=== PATIENT | female | born 1935 | race Caucasian/White ===

== ENCOUNTER 2017-09-17 13:29 | Inpatient (IN) | payer OTHER ==
[~2017-09-17] VITALS: Ht 160 cm; Wt 53.8 kg
[2017-09-17] VITALS (20 sets, daily range): BP systolic 115–180; BP diastolic 65–156; PULSE 65–86; TEMP 36.4–36.9; O2SAT 92–95; Ht 160 cm; Wt 53.8 kg
[2017-09-17] MEDS ORDERED: ONDANSETRON INJ 2 MG/ML 2 ML VIAL IV PRN (17:30)
[2017-09-17] MEDS ORDERED: ACETAMINOPHEN 325 MG TAB PO PRN (17:30)
[2017-09-17] MEDS ORDERED: MAGNESIUM HYDROXIDE SUSP 30 ML UDC PO PRN (17:30)
[2017-09-17] MEDS ORDERED: PATIENT'S ALLERGY INFO NEEDS ENTERED SCH (18:30)
--- NOTE | 2017-09-17 18:46 | Nephrology Consultation ---
Nephrology Consultation Date & Providers Date of Consultation: Sep 17, 2017. Primary Care Provider: Alexis Cuevas D.O. Referring Provider: Reason for Consultation Evaluation for emergency dialysis for volume overload and hyperkalemia for patient with end-stage renal disease. History of Present Illness Theresa is a very pleasant 82-year-old female with past medical history significant for end-stage renal disease on hemodialysis, hypertension, anemia and secondary hyperparathyroidism admitted to the hospital with 2 days history of diarrhea, volume overload and hyperkalemia with missed dialysis treatment. Nephrology consult was requested for providing emergency hemodialysis. Electronic medical records including labs and imaging are reviewed in detail during patient's visit. Theresa has history of end-stage renal disease has been on hemodialysis for more than 10 years. Etiology for end-stage renal disease seems to be renal cell carcinoma status post nephrectomy with eventual loss of renal function. She has been on dialysis on Wednesday, Wednesday, Wednesday via left radiocephalic AV fistula. Her last dialysis treatment was on Wednesday09/13/2017. Shortly was having diarrhea and abdominal pain for last 3-4 days and was not able to go for dialysis on last Wednesday as her regular schedule due to ongoing diarrhea. As her diarrhea continued to progress and she reports abdominal cramps bowel movement after eating anything, she went to [facility]. She is normally from [facility] but there [facility] she was transferred to [facility] from [facility]. She was found to be volume overloaded, blood pressure was running high and lab showed potassium 6.3. Currently she is on 6 L oxygen via nasal cannula, oxygen saturation has been staying below 90 and has been having significant shortness of breath. She is overall feeling poorly, having difficulty breathing while talking, continue to complain of abdominal cramps with eating and ongoing diarrhea. She has been anuric. She reports occasional cough and headache over last few days. Denies fever or chills. She had flu shot in the fall. Past Medical/Surgical History Medical: # End-stage renal disease on hemodialysis since 2001 # Hypertension # history of renal cell carcinoma status post nephrectomy # anemia secondary to end-stage renal disease # secondary hyperparathyroidism of renal origin # left forearm radiocephalic AV fistula placement Surgical: # Surgery for left radiocephalic AV fistula Allergies Coded Allergies: Morphine (Verified Allergy, Severe, GI SYMPTOMS, 09/17/17) Per patient report Acetaminophen (Verified Allergy, Unknown, GI SYMPTOMS, 09/17/17) Patient states she cannot remember what happened when she takes this medication Codeine (Verified Allergy, Unknown, GI SYMPTOMS, 09/17/17) Patient states she cannot remember what happened when she takes this medication Inpatient Medications Current Inpatient Medications Medications (Trade) Dose Ordered Sig/Augie Route Start Time Stop Time Status Last Admin Dose Admin Acetaminophen (Tylenol Tab) 650 mg Q4H PRN PO 09/17/17 17:30 10/17/17 17:29 UNV Magnesium Hydroxide (Milk Of Magnesia Susp) 30 ml Q6H PRN PO 09/17/17 17:30 2 17:29 UNV Ondansetron HCl (Zofran Inj) 4 mg Q6H PRN IV 09/17/17 17:30 10/17/17 17:29 UNV Miscellaneous Information (Patient'S Allergy Info Needs Entered) 1 ea Q30M N/A 09/17/17 18:30 10/17/17 18:29 Family History Could not provide any detailed family history regarding chronic kidney disease or end-stage renal disease. Social History Smoking Status: Former Smoker Review of Systems A complete review of systems was performed. Pertinent positives are noted above. All other systems are negative. Physical Exam Date Time Temp Pulse Resp B/P (MAP) Pulse Ox O2 Delivery O2 Flow Rate FiO2 09/17/17 17:54 Nasal Cannula 6.0 09/17/17 17:20 36.8 71 16 179/75 (109) 92 Nasal Cannula 6.0 GENERAL: elderly female AAA x 3, ill-appearing, in moderate respiratory distress. HEENT: Atraumatic, normocephalic. NECK: Supple, positive JVD, no carotid bruit appreciated. ENT: No sinus tenderness MOUTH and THROAT: Moist oral mucosa, no oral ulcer or pharyngeal erythema RESPIRATORY: using accessory muscles to breath, coarse crackles bilaterally. CARDIOVASCULAR: S1, S2 normal, rate rhythm regular. ABDOMEN: Soft, nontender, positive bowel sound. MUSCULOSKELETAL: No joint swelling, erythema or tenderness. Normal range of motion. SKIN: No skin rash EXTREMITY: Trace bilateral lower extremity edema NEURO: No gross focal neurological deficit, speech fluent. PSYCHIATRY: Normal mood and judgment Laboratory Results Last 24 Hours Test 09/17/17 17:17 Impression (1) End-stage renal disease on hemodialysis (2) Volume overload (3) Hyperkalemia, diminished renal excretion (4) Hypertension (5) Anemia (6) Secondary hyperparathyroidism of renal origin 82-year-old female with end-stage renal disease on hemodialysis Wednesday, Wednesday, Wednesday, presented with volume overload and hyperkalemia after missing dialysis was 3 days. Patient has been on dialysis for more than 10 years. Has been having abdominal pain and diarrhea for 3 days and missed dialysis. Has history of hypertension, blood pressure has been running high. Past medical history also significant for renal cell carcinoma status post nephrectomy with eventual loss of renal function and has been on dialysis since. Patient is now clearly volume overloaded, has been having respiratory distress, oxygen saturation below 90% on 6 L nasal cannula, exam consistent with pulmonary vascular congestion. Lab from [facility] showed hyperkalemia, potassium was 6.3. Blood pressure has been elevated. Currently patient continues to have significant respiratory distress and overall feeling poorly. Recommendations --will set up for emergency dialysis to improve volume status and correct hyperkalemia, will use 2K bath, UF goal for 3 L. --avoid IV fluid --dose medications for GFR <10 --start on Tums 1 tablet with each meal as phosphate binder --Nephrocaps 1 cap daily --Epogen with dialysis as needed for hemoglobin less than 10 Hemodialysis orders entered in EMR, statin discussed with the on-call dialysis nurse. We will be available for any concerns or question throughout dialysis treatment. Thank you for the consult, it was pleasure to see Theresa
[2017-09-17] MEDS ORDERED: ALPR1TAB3 PO (19:01)
[2017-09-17] MEDS ORDERED: CINA60TA PO (19:01)
[2017-09-17] MEDS ORDERED: SERT25TA PO (19:11)
[2017-09-17] MEDS ORDERED: LOVA40TA4 PO (19:11)
[2017-09-17] MEDS ORDERED: ZOLP10TA PO (19:11)
[2017-09-17] MEDS ORDERED: B-CO1CAP17 PO (19:11)
[2017-09-17] MEDS ORDERED: METO50TA16 PO (19:11)
[2017-09-17] MEDS ORDERED: CALC667C4 PO ×2 (19:11)
--- NOTE | 2017-09-17 19:20 | History and Physical ---
History & Physical Date & Time of Service: Sep 17, 2017 at 19:09 Chief Complaint: Renal Failure Primary Care Physician: Alexis Cuevas D.O. History of Present Illness Source: patient 82 y/o F who was transferred from [place] ED for dialysis. Pt generally follows with [place] for the renal care but they are unable to accept transfers today so she was sent here. Pt was in her usual state of health until Wednesday AM when she woke up with diarrhea. She states it started as soon as she ate breakfast. She decided to not go to her usual HD due to this. The post- prandial diarrhea has continued, so she did not go today either. Her last HD was Wednesday. Pt also started to have epigastric abd pain. No n/v. In the ED, pt was noted to have hyperkalemia and cr 10. She was given insulin, bicarb, kayexalate prior to transfer. Pt generally uses O2 HS only, but has started to need it at rest now. Upon sign out from [place] ED, pt was not having SOB or other signs of hemodynamic instability. She states she feels SOB. No chest pain. Pt denies fever, LE pain or swelling. I spoke with Dr. Danielson who will contact the HD team for emergent HD tx Past Medical/Surgical History HTN HLD CAD Dep/anx Hyperparathyroidism CKD V Social History Smoking Status: Former Smoker Alcohol Use: none Drug Use: none Allergies Coded Allergies: Morphine (Verified Allergy, Severe, GI SYMPTOMS, 09/17/17) Per patient report Acetaminophen (Verified Allergy, Unknown, GI SYMPTOMS, 09/17/17) Patient states she cannot remember what happened when she takes this medication Codeine (Verified Allergy, Unknown, GI SYMPTOMS, 09/17/17) Patient states she cannot remember what happened when she takes this medication Home Medications Scheduled Alprazolam (Xanax), 2 MG PO HS Calcium Acetate (Phoslo 667 Mg), 1 CAP PO SNACKS Calcium Acetate (Phoslo 667 Mg), 2 CAP PO TIDM Cinecalcet (Sensipar), 60 MG PO DAILY Lovastatin (Mevacor), 40 MG PO DAILY Metoprolol Tartrate (Lopressor) (Lopressor), 50 MG PO BID Sertraline (Zoloft), 25 MG PO QAM Vitamin B Cmplx/Vitc/Folic Ac (Nephrocaps), 1 CAP PO DAILY Zolpidem Tartrate (Ambien), 10 MG PO HS Physical Exam Vital Signs Date Time Temp Pulse Resp B/P (MAP) Pulse Ox O2 Delivery O2 Flow Rate FiO2 09/17/17 17:54 Nasal Cannula 6.0 09/17/17 17:20 36.8 71 16 179/75 (109) 92 Nasal Cannula 6.0 General Appearance: + mild distress (SOB on O2), + thin Head: normocephalic, atraumatic Eyes: normal inspection, EOMI, sclerae normal Respiratory/Chest: + respiratory distress, + crackles Cardiovascular: regular rate, rhythm, no edema Abdomen/GI: soft, + tenderness (epigastric) Extremities/Musculoskelatal: no calf tenderness, no pedal edema Neurologic/Psych: alert, normal mood/affect (but anxious appearing), oriented x 3 Skin: normal color, warm/dry Diagnostics Laboratory Results Results Past 24 Hours Test 09/17/17 17:17 Range/Units Diagnostic Radiology CT AP pending radiology review, reported as neg for acute with a stable AAA noted CXR: noted for CHF Impression Assessment and Plan 82 y/o F who was transferred from [place] for acute on chronic renal failure. Acute on chronic renal failure: in the setting of missed HD (missed Wednesday and today) Now in CHF, spoke with Dr. Danielson who will arrange for urgent HD tonight Cr at [place] noted to be 10, repeat pending CKD V Pt typically follows with [facility] for her renal care, however they were unable to accept pt due to bed availability HyperK: given kayexalate, insulin, bicarb at OSH Repeat value pending CHF: likely related to inability to make urine and missed HD Monitor s/p HD Diarrhea: uncertain cause Monitor Cdiff pending HTN: continue home meds Pharmacy: pt unable to reconcile home meds Discussed with pharmacy who will research and update Depression/anx: continue home meds ERIBERTO:?? pt uses O2 HS only at home Other: Full code Reg diet Heparin for DVT proph Level of Care Med/Surg Advanced Directives Existing Living Will: No Existing Power of Wastewater Engineer: No Resuscitation Status FULL RESUSCITATION VTE Prophylaxis VTE Risk Assessment Done? Y/N: Yes Risk Level: Low
[2017-09-17] MEDS ORDERED: ALPRAZOLAM 0.5 MG TAB PO SCH (21:00)
[2017-09-17] MEDS ORDERED: LOVASTATIN 20 MG TAB PO SCH (21:00)
[2017-09-17] MEDS ORDERED: ZOLPIDEM TARTRATE 10 MG TAB PO SCH (21:00)
[2017-09-17] MEDS: METOPROLOL TARTRATE 50 MG TAB PO SCH (23:20)
[2017-09-17] MEDS: SENSIPAR~ORDER AWAITING ACTION SCH (23:31)
[2017-09-18 00:33] VITALS: BP 97/54; PULSE 60; O2SAT 96
[2017-09-18 00:52] LABS: HEMATOCRIT 28.4 % (37-47); HEMOGLOBIN 9.3 g/dL (12.0-16.0); MEAN CELL VOLUME 106.8 fL (80-100); MEAN CORPUSCULAR HGB CONC 32.7 g/dl (32-36); PLATELET COUNT 153 K/uL (130-400); RED CELL DISTRIBUTION WIDTH CV 15.2 % (11.5-14.5); RED CELL DISTRIBUTION WIDTH SD 58.5 fL (36.4-46.3); WHITE BLOOD COUNT 7.92 K/uL (4.8-10.8)
[2017-09-18 01:01] LABS: PTT PATIENT 28.2 SECONDS (21.0-31.0)
[2017-09-18 01:10] LABS: CALCIUM 7.6 mg/dl (8.5-10.1); CREATININE 3.26 mg/dl (0.60-1.20); PHOSPHORUS 2.4 mg/dl (2.5-4.9); POTASSIUM 3.4 mmol/L (3.5-5.1)
[2017-09-18 03:07] VITALS: BP 124/62; PULSE 56; TEMP 36.8; O2SAT 98
[2017-09-18] MEDS: HEPARIN SOD 5000 UNIT/0.5 ML CARP SQ SCH ×2 (06:04→13:24)
[2017-09-18 07:26] VITALS: BP 156/78; PULSE 55; TEMP 36.8; O2SAT 99
[2017-09-18] MEDS: SENSIPAR~ORDER AWAITING ACTION SCH ×2 (08:00→15:22)
[2017-09-18] MEDS ORDERED: CALCIUM ACETATE 667MG GELCAP PO SCH (08:30)
[2017-09-18] MEDS ORDERED: CALCIUM ACETATE 667MG GELCAP PO PRN (09:00)
[2017-09-18] MEDS ORDERED: SERTRALINE HCL 50 MG TAB PO SCH (09:00)
[2017-09-18] MEDS: CALCIUM ACETATE 667MG GELCAP PO SCH ×3 (09:00→17:45)
[2017-09-18] MEDS: METOPROLOL TARTRATE 50 MG TAB PO SCH (09:00)
[2017-09-18] MEDS ORDERED: NEPHROCAPS PO SCH ×2 (09:00)
[2017-09-18 09:06] VITALS: BP 147/77; PULSE 58
--- NOTE | 2017-09-18 13:27 | Nephrology Progress Note ---
Nephrology Progress Note Date of Service Sep 18, 2017. Chief Complaint Follow-up for volume overload and hyperkalemia for patient with end-stage renal disease. Stefano Cardenas was seen and examined in her room this morning. She is feeling much better, shortness of breath resolved, currently oxygen saturation normal in room air. Had dialysis yesterday with more than 2 liters ultra filtration. Potassium normalized. Currently blood pressure electrolyte and volume status acceptable. Review of Systems A complete review of systems was performed. Pertinent positives are noted above. All other systems are negative. Vital Signs Last 8 Hrs Date Time Temp Pulse Resp B/P (MAP) Pulse Ox O2 Delivery O2 Flow Rate FiO2 09/18/17 09:06 58 147/77 (100) 09/18/17 07:26 36.8 55 19 156/78 (104) 99 Room Air 09/18/17 07:15 Nasal Cannula 4.0 09/18/17 03:07 36.8 56 16 124/62 (82) 98 Nasal Cannula 4.0 Last Recorded Weight Weight (Kilograms): 53.800 Physical Exam GENERAL: Elderly female, AAA x 3, pleasant, healthy-appearing, not in any distress. NECK: Supple, no JVD. RESPIRATORY: Normal breathing efforts, no accessory muscle use, clear to auscultation bilaterally, no wheezes or rales. CARDIOVASCULAR: S1, S2 normal, rate rhythm regular. EXTREMITY: No lower extremity edema NEURO: speech fluent. PSYCHIATRY: Normal mood and judgment Family History Could not provide any detailed family history regarding chronic kidney disease or end-stage renal disease. Social History Alcohol Use: none Drug Use: none Laboratory Results Past 24 Hours 09/18/17 00:30 09/18/17 00:30 Test 09/18/17 00:30 Red Blood Count 2.66 M/uL (4.2-5.4) Mean Corpuscular Volume 106.8 fL (80-100) Mean Corpuscular Hemoglobin 35.0 pg (25-34) Mean Corpuscular Hemoglobin Concent 32.7 g/dl (32-36) RDW Standard Deviation 58.5 fL (36.4-46.3) RDW Coefficient of Variation 15.2 % (11.5-14.5) Mean Platelet Volume 9.0 fL (7.4-10.4) Prothrombin Time 11.0 SECONDS (9.0-12.0) Prothromb Time International Ratio 1.0 (0.9-1.1) Activated Partial Thromboplast Time 28.2 SECONDS (21.0-31.0) Partial Thromboplastin Ratio 1.1 Anion Gap 7.0 mmol/L (3-11) Est Creatinine Clear Calc Drug Dose 11.2 ml/min Estimated GFR () 14.7 Estimated GFR (Non- 12.7 BUN/Creatinine Ratio 3.5 (10-20) Calcium Level 7.6 mg/dl (8.5-10.1) Phosphorus Level 2.4 mg/dl (2.5-4.9) Magnesium Level 2.0 mg/dl (1.8-2.4) Hepatitis B Surface Antigen NEG (NEG) Hepatitis B Surface Antibody POS Allergies Coded Allergies: Morphine (Verified Allergy, Severe, GI SYMPTOMS, 09/17/17) Per patient report Codeine (Verified Allergy, Unknown, GI SYMPTOMS, 09/17/17) Patient states she cannot remember what happened when she takes this medication Medications Current Inpatient Medications Medications (Trade) Dose Ordered Sig/Augie Route Start Time Stop Time Status Last Admin Dose Admin Acetaminophen (Tylenol Tab) 650 mg Q4H PRN PO 09/17/17 17:30 10/17/17 17:29 09/17/17 21:16 650 MG Magnesium Hydroxide (Milk Of Magnesia Susp) 30 ml Q6H PRN PO 09/17/17 17:30 10/17/17 17:29 Ondansetron HCl (Zofran Inj) 4 mg Q6H PRN IV 09/17/17 17:30 10/17/17 17:29 09/17/17 23:19 4 MG Vitamin B Complex/ Vit C/Folic Acid (Nephrocaps) 1 cap QAM PO 09/18/17 09:00 10/18/17 08:59 09/18/17 09:01 1 CAP Heparin Sodium (Porcine) (Heparin Sq 5000 Unit/0.5ml) 5,000 unit Q8 SQ 09/18/17 06:00 10/18/17 05:59 09/18/17 06:04 5,000 UNIT Alprazolam (Xanax Tab) 2 mg HS PO 09/17/17 21:00 10/17/17 20:59 09/17/17 23:18 2 MG Calcium Acetate (Phoslo Cap) 667 mg DAILY PRN PO 09/18/17 09:00 10/18/17 08:59 Calcium Acetate (Phoslo Cap) 1,334 mg TIDM PO 09/18/17 08:30 10/18/17 08:29 09/18/17 09:00 1,334 MG Metoprolol Tartrate (Lopressor Tab) 50 mg BID PO 09/17/17 21:00 10/17/17 20:59 09/17/17 23:20 50 MG Sertraline HCl (Zoloft Tab) 25 mg QAM PO 09/18/17 09:00 10/18/17 08:59 09/18/17 09:02 25 MG Vitamin B Complex/ Vit C/Folic Acid (Nephrocaps) 1 cap DAILY PO 09/18/17 09:00 10/18/17 08:59 Zolpidem Tartrate (Ambien Tab) 10 mg HS PO 09/17/17 21:00 10/17/17 20:59 09/17/17 23:18 10 MG Miscellaneous Information (Order Awaiting Action) 1 ea QS N/A 09/18/17 00:00 10/18/17 00:00 Lovastatin (Mevacor Tab) 40 mg HS PO 09/17/17 21:00 10/17/17 20:59 09/17/17 23:19 40 MG Impression (1) End-stage renal disease on hemodialysis (2) Volume overload (3) Hyperkalemia, diminished renal excretion (4) Hypertension (5) Anemia (6) Secondary hyperparathyroidism of renal origin 82-year-old female with end-stage renal disease on hemodialysis Wednesday, Wednesday, Wednesday, presented with volume overload and hyperkalemia after missing dialysis was 3 days. Patient has been on dialysis for more than 10 years. Has been having abdominal pain and diarrhea for 3 days and missed dialysis. Has history of hypertension, blood pressure has been running high. Past medical history also significant for renal cell carcinoma status post nephrectomy with eventual loss of renal function and has been on dialysis since. Patient is now clearly volume overloaded, has been having respiratory distress, oxygen saturation below 90% on 6 L nasal cannula, exam consistent with pulmonary vascular congestion. Lab from [facility] showed hyperkalemia, potassium was 6.3. Blood pressure has been elevated. Currently patient continues to have significant respiratory distress and overall feeling poorly. Recommendations --had emergency dialysis last evening with improvement in volume status and hyperkalemia. Currently electrolyte blood pressure and volume status acceptable --avoid IV fluid --dose medications for GFR <10 --continue on Tums 1 tablet with each meal as phosphate binder --Nephrocaps 1 cap daily --next dialysis Wednesday, will give Epogen with dialysis Will follow
--- NOTE | 2017-09-18 14:49 | Discharge Instructions ---
Discharge Instructions Date of Service Sep 18, 2017. Admission Reason for Admission: Renal Failure Discharge Discharge Diagnosis / Problem: viral gastroenteritis causing diarrhea, causing missed dialysis Discharge Goals Goal(s): Diagnostic testing, Therapeutic intervention Activity Recommendations Activity Limitations: resume your previous activity . Instructions / Follow-Up Instructions / Follow-Up obviously things like a stomach bug are difficult to avoid, but as best as possible, try to not miss dialysis appointments. if you do, usually kidney docs are good about trying to get you in for a "make up session" before you get into too much trouble. in the future, if you miss even one session, call your factory laborer (kidney doctor) to try to get things expedited to get dialyzed as soon as possible everything looks like you've returned to your baseline of health, except for the oxygen numbers. by your description, i suspect you're a person who likely benefits from oxygen all the time, and just doesn't feel short of breath when your numbers are running low. however, it's also possible that there's still a little bit of fluid backed up, but nothing that requires urgent intervention. i would recommend you wear your oxygen at a setting of 4L at all times at least until dialysis on wednesday. after that, they can check a pulse ox reading and give you a good idea of where your numbers are. given my suspicion that you have lower oxygen numbers than you realize (usually a patient isn't able to have the oxygen equipment you have unless they show evidence of running low all the time, or at least more often than not), it would be beneficial to get a pulse oximeter to be able to check your own readings at home. the goal would be to use oxygen to keep your numbers above 90 %. Call your Primary Care doctor if any of the following symptoms or problems start or get worse: * Shortness of breath or difficulty breathing * Wake up at night short of breath * Chest pain * Cough * Swelling of your hands, feet, or legs * More fatigued or tired with your normal activity * Palpitations - sudden fast heart beats WEIGHT * Weigh yourself every morning after using the bathroom. * Use the same scale. * Wear the same amount of clothing. * Write your weight down on a chart. * Call your Primary Care doctor if you gain more than 2-3 pounds in 1-2 days. MEDICATIONS * Use this discharge instruction sheet for medication instructions. * Take your medications at the time your doctor ordered. * Do not skip a dose of your medicines. * If you miss a dose of medicine, take it as soon as possible, but DO NOT DOUBLE A DOSE. * Read your medicine information when you get home. * Know all of the side effects of your medicine. If in doubt, ask your pharmacist * Call your Primary Care doctor's office if you have any side effects. * Be sure all of your doctors know what medicine and herbs you take (including cold, flu, and herbal medicine). Take the following with you to your follow-up doctor appointments: * Weight Chart * Medication List * List of questions Do not drink excessive alcohol, beer or wine. Current Hospital Diet Patient's current hospital diet: Renal Diet Discharge Diet Recommended Diet: Renal Diet Pending Studies Studies pending at discharge: no Medical Emergencies . Who to Call and When: Call 911 or go to the Emergency Room if: * If at any time you feel your situation is an emergency * You have tightness or pain in your chest that does not go away with rest or Nitroglycerin * You are very short of breath even with rest . Non-Emergent Contact Non-Emergency issues call your: Primary Care Provider, Solar Engineer (follow up at dialysis on wednesday; have a repeat CBC and BMP (labwork) done early next week) . . "Provider Documentation" section prepared by Armando Rosado. . VTE Core Measure Inpt VTE Proph given/why not?: Unfractionated heparin SQ
[2017-09-18 15:25] VITALS: BP 166/78; PULSE 72; TEMP 36.8; O2SAT 96
[2017-09-18 16:26] VITALS: BP 166/78; PULSE 72; TEMP 36.8; O2SAT 96
--- NOTE | 2017-09-18 18:39 | Discharge Summary ---
Discharge Summary Date of Service Sep 18, 2017. Discharge Summary Admission Date: Sep 17, 2017 at 17:14 Discharge Date: Sep 18, 2017 Discharge Disposition: Home Principal Diagnosis: CHF and hyperkalemia due to missing HD for ESRD Procedures: HD Last Resulted CBC 09/18/17 00:30 Last Resulted BMP 09/18/17 00:30 Consultations: nephrology Medication Reconciliation Continued Medications: Alprazolam (Xanax) 1 Mg Tab 2 MG PO HS, TAB Calcium Acetate (Phoslo 667 Mg) 667 Mg Cap 1 CAP PO SNACKS for 90 Days, CAP 3 Refills Calcium Acetate (Phoslo 667 Mg) 667 Mg Cap 2 CAP PO TIDM, CAP Cinecalcet (Sensipar) 60 Mg Tab 60 MG PO DAILY, TAB Lovastatin (Mevacor) 40 Mg Tab 40 MG PO DAILY, TAB Metoprolol Tartrate (Lopressor) (Lopressor) 50 Mg Tab 50 MG PO BID, TAB Sertraline (Zoloft) 25 Mg Tab 25 MG PO QAM, TAB Vitamin B Cmplx/Vitc/Folic Ac (Nephrocaps) Cap 1 CAP PO DAILY, CAP Zolpidem Tartrate (Ambien) 10 Mg Tab 10 MG PO HS, TAB Discharge Exam Physical Exam: General Appearance: no apparent distress Eyes: EOMI ENT: hearing grossly normal Neck: trachea midline Respiratory/Chest: no respiratory distress, no accessory muscle use Extremities: normal inspection Neurologic/Psychiatric: database admin II-XII nml as tested, alert, normal mood/affect Hospital Course Acute on chronic renal failure: in the setting of missed HD (missed Wednesday and today) came to [place] [facility] in active CHF and hyperkalemia - due to missed HD dialyzed emergently last night and now notes that she feels "as good as new" and is absolutely at baseline level of health and would like to go home next HD wednesday -encouraged to not miss HD and if medical circumstances cause her to miss, to contact nephrology sooner to prevent future deteriorations like this hypoxia -completely asymptomatic, no findings concerning, stable, but requiring supplemental O2 -on questioning, she notes that she has both stationary and portable O2 at home but doesn't "use it all the time" -strongly suspect chronic hypoxia that she's grown accustomed to, brought to awareness now due to acute respiratory insufficiency w above noted, and now resolved, CHF, and ongoing f/u of pulse ox since. stable for home - discussed using her already prescribed and in the home / at least until f/u after next HD - and would like ongoing discussion with her PCP in this regard as again i suspect what we are seeing is her baseline state. also encouraged her to get a home pulse ox to follow her #'s HyperK: given kayexalate, insulin, bicarb at OSH normalized CHF: likely related to inability to make urine and missed HD see above uncertain if elements of systolic, diastolic or purely from ESRD Diarrhea: likely was due to viral GE - now resolved, she's eating well adn feeling well. HTN: continue home meds Depression/anx: continue home meds ERIBERTO:?? PCP f/u Other: Full code Heparin for DVT proph stable for discharge Total Time Spent: Less than 30 minutes This includes examination of the patient, discharge planning, medication reconciliation, and communication with other providers. Discharge Instructions Please refer to the electronic Patient Visit Report (Discharge Instructions) for additional information. Additional Copies To Alexis Cuevas D.O.
[2017-09-18] MEDS ORDERED: ALBUTEROL HFA 8 GM INHALER INH PRN (18:45)
[2017-09-19] MEDS ORDERED: FLUTICASONE HFA 110MCG INHALER INH SCH (09:00)
== END 2017-09-18 20:30 | disposition home or self-care (01) | DRG 640 ==
LOC: C.MSW 17:14
PROVIDERS: ADMIT Family Medicine; ATTEND Family Medicine
PROC: 5A1D70Z Performance of Urinary Filtration, Intermittent, Less than 6 Hours Per Day (ICD-10-PCS; principal; 2017-09-18)
DX: E87.79 Other fluid overload (principal); N18.6 End stage renal disease; N17.9 Acute kidney failure, unspecified; I13.2 Hypertensive heart and chronic kidney disease with heart failure and with stage 5 chronic kidney disease, or end stage renal disease; N25.81 Secondary hyperparathyroidism of renal origin; I50.89 Other heart failure; Z99.2 Dependence on renal dialysis; E87.5 Hyperkalemia; I25.10 Atherosclerotic heart disease of native coronary artery without angina pectoris; E78.5 Hyperlipidemia, unspecified; F32.9 Major depressive disorder, single episode, unspecified; Z87.891 Personal history of nicotine dependence; G47.33 Obstructive sleep apnea (adult) (pediatric); A08.4 Viral intestinal infection, unspecified; Z91.15 Patient's noncompliance with renal dialysis; R09.02 Hypoxemia; Z85.528 Personal history of other malignant neoplasm of kidney; Z90.5 Acquired absence of kidney; D63.1 Anemia in chronic kidney disease